=== PATIENT | female | born 1995 | race Caucasian/White ===

== ENCOUNTER 2021-09-27 05:24 | Emergency (ER) | payer MEDICAID ==
[~2021-09-27] VITALS: Ht 172.7 cm; Wt 90.5 kg
[2021-09-27 05:49] VITALS: BP 100/48
[2021-09-27] MEDS ORDERED: normal saline 1000ml 1,000 ML IV ONE ×2 (06:00→06:25)
[2021-09-27] MEDS ORDERED: metoclopramide 5 mg/ml inj IV ONE (06:25)
--- NOTE | 2021-09-27 07:30 | NUR ---
PT COMPLAINING THAT SHE CAN NOT GET COMFORTABLE. WRITHING AROUND BED. PULLS PIV OUT WITH CATH INTACT AND FLUIDS STILL RUNNING. DRESSES SELF AND WALKS OUT.
== END 2021-09-27 08:02 | disposition left against medical advice (07) ==
LOC: ER 05:27
DX: O21.9 Vomiting of pregnancy, unspecified (principal); R50.9 Fever, unspecified; R19.7 Diarrhea, unspecified; Z3A.20 20 weeks gestation of pregnancy; Z88.8 Allergy status to other drugs, medicaments and biological substances
CPT/HCPCS: 96361; 96374; 99284; J2765; J7030